=== PATIENT | female | born 1965 | race Two or more races ===

== ENCOUNTER 2020-08-27 06:30 | Outpatient (CLI) | payer OTHER | END 2020-08-27 15:00 | disposition home or self-care (01) | LOC: LAB 06:30 | PROVIDERS: ATTEND Internal Medicine Hematology & Oncology | DX: D50.8 Other iron deficiency anemias (principal); I10 Essential (primary) hypertension; D51.8 Other vitamin B12 deficiency anemias; D68.8 Other specified coagulation defects; E56.1 Deficiency of vitamin K; D68.2 Hereditary deficiency of other clotting factors; E78.2 Mixed hyperlipidemia ==

== ENCOUNTER 2021-05-26 06:24 | Outpatient (CLI) | payer OTHER | END 2021-05-26 06:33 | disposition home or self-care (01) | LOC: LAB 06:24 | PROVIDERS: ATTEND Internal Medicine Hematology & Oncology | DX: E78.2 Mixed hyperlipidemia (principal); D50.8 Other iron deficiency anemias; R79.9 Abnormal finding of blood chemistry, unspecified; K76.89 Other specified diseases of liver; R74.02 Elevation of levels of lactic acid dehydrogenase [LDH]; I10 Essential (primary) hypertension; D51.8 Other vitamin B12 deficiency anemias; D51.1 Vitamin B12 deficiency anemia due to selective vitamin B12 malabsorption with proteinuria ==